=== PATIENT | female | born 1955 | race Asian ===

== ENCOUNTER 2021-06-19 21:02 | Emergency (ER) | payer OTHER ==
[~2021-06-19] VITALS: Ht 123 cm; Wt 55.8 kg
[2021-06-19 21:45] LABS: ABSOLUTE LYMPHOCYTES 1.1 thou/uL (0.8-5.3); ABSOLUTE MONOCYTES 0.4 thou/uL (0.0-1.2); ABSOLUTE NEUTROPHILS 2.3 thou/uL (1.6-8.1); BASOPHILS 0.7 %; EOSINOPHILS 0.9 %; HEMATOCRIT 36.1 % (37.0-47.0); HEMOGLOBIN 12.3 gm/dL (12.0-15.0); LYMPHOCYTES 27.8 %; MCH 30.9 pg (26.0-34.0); MCHC 34.1 g/dL (28.0-37.0); MCV 90.6 fL (80.0-100.0); MONOCYTES 9.4 %; MPV 8.6 fl. (7.2-11.1); NUCLEATED RBCS 0 /100WBC; PLATELET COUNT* 168 thou/uL (150-400); POLYS 61.2 %; RBC 3.98 mil/uL (4.20-5.00); RDW-CV 12.2 % (10.5-14.5); WBC 3.8 thou/uL (4.0-11.0)
[2021-06-19 21:55] LABS: CALCIUM 9.5 mg/dL (8.5-10.1); CREATININE 0.9 mg/dL (0.6-1.3); POTASSIUM 3.8 mmol/L (3.5-5.1)
[2021-06-19 22:06] LABS: ALBUMIN 3.9 g/dL (3.4-5.0); MAGNESIUM 2.4 mg/dL (1.8-2.4); TOTAL BILIRUBIN 0.2 mg/dL (<0.1-1.0); TOTAL PROTEIN 8.1 g/dL (6.4-8.2)
[2021-06-19 22:29] LABS: URINE BILIRUBIN NEGATIVE (Negative); URINE BLOOD NEGATIVE (Negative); URINE CLARITY CLEAR; URINE COLOR YELLOW; URINE GLUCOSE-RANDOM NEGATIVE (Negative); URINE KETONES NEGATIVE (Negative); URINE LEUKOCYTES-REFLEX TRACE (Negative); URINE NITRITE-REFLEX NEGATIVE (Negative); URINE PROTEIN NEGATIVE (Negative); URINE UROBILINOGEN 0.2 E.U./dl (0.2-1.0)
[2021-06-19 22:45] LABS: CRYSTALS None Seen /LPF (None Seen); MUCUS None Seen strn/LPF (None Seen); SQUAMOUS >10 Many /LPF (0-3)
[2021-06-19 22:46] LABS: BACTERIA-REFLEX 1-9 Few /HPF (None Seen); CASTS None Seen /LPF (None Seen); URINE RBC None Seen /HPF (0-2); URINE WBC-REFLEX 6-15 Few /HPF (0-5)
[2021-06-19] MEDS ORDERED: AUGMENTIN 875-1 EACH PO (23:24)
[2021-06-19 23:31] LABS: INFLUENZA A ANTIGEN Negative (Negative); INFLUENZA B ANTIGEN Negative (Negative)
[2021-06-20 00:22] VITALS: BP 133/80
--- NOTE | 2021-06-20 10:16 | EKG ---
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1955 Requested By: Jaclyn Bailey Order Number: [id number] MD: Tacho Duong Measurements Intervals [place] Rate: 89 P: 59 RI: 158 QRS: -33 QRSD: 104 T: 31 QT: 373 QTc: 454 Interpretive Statements Sinus rhythm Left axis deviation Borderline T abnormalities, anterior leads No previous ECG available for comparison Electronically Signed On 06-20-2021 10:16:09 [employer] by Tacho Duong [email or web address] <ELECTRONICALLY SIGNED> By: Tacho Duong MD, [facility] 06/20/21 1016 11 11 Tacho Duong MD, [facility] /EPI
== END 2021-06-20 00:23 | disposition home or self-care (01) ==
LOC: M.ERS 21:02
PROVIDERS: Emergency Medicine
DX: U07.1 COVID-19 (principal); R53.1 Weakness